=== PATIENT | male | born 1980 | race African-American/Black ===

== ENCOUNTER 2019-08-17 09:28 | Emergency (ER) | payer SELFPAY ==
[~2019-08-17] VITALS: Ht 175.3 cm; Wt 80.0 kg
[2019-08-17 09:59] VITALS: BP 143/93
[2019-08-17] MEDS ORDERED: ONDANSETRON HCL 4MG TABLET PO ONE (10:15)
== END 2019-08-17 10:29 | disposition home or self-care (01) ==
LOC: ER 09:28
DX: H10.023 Other mucopurulent conjunctivitis, bilateral (principal); R11.2 Nausea with vomiting, unspecified
CPT/HCPCS: 99282; Q0162; Z7610